=== PATIENT | female | born 1980 | race Caucasian/White ===

== ENCOUNTER 2020-06-17 09:45 | Outpatient (CLI) | payer OTHER, SELFPAY ==
[2020-06-23] MEDS ORDERED: PNV91TAB10 PO (19:02)
== END 2020-06-17 17:14 | disposition home or self-care (01) ==
LOC: MLB 09:45
PROVIDERS: ATTEND Obstetrics & Gynecology
DX: Z11.59 Encounter for screening for other viral diseases (principal)
CPT/HCPCS: U0003-CS